=== PATIENT | male | born 1960 | race Caucasian/White ===

== ENCOUNTER → 2016-07-08 | Outpatient (CLI) | payer MEDICARE, OTHER ==
[~2016-07-08] MED LIST: ALBU1AER INH; AMIO200 PO; AMLO5TAB22 PO; ATOR80TA PO; COQ150CA PO; COUM3TAB PO; GABA100C4 PO; LEVO50TA4 PO; LORA-392 PO; MORP30SU PO; MORP60TA20 PO; MSIR15 PO; OMEG1CAP53 PO; OMEP20TA39 PO; SENN1TAB11 PO; SPIRCAP INH; SYMB80AE INH; TAB-TAB PO; WARF6 PO; ZYPR5TAB PO
[2016-07-08 13:15] LABS: AUTOMATED NEUTROPHIL # 5.9 TH/MM3 (1.8-7.7); BASOPHIL # 0.1 TH/MM3 (0-0.2); BASOPHIL % 0.7 % (0.0-2.0); EOSINOPHIL # 0.3 TH/MM3 (0-0.4); EOSINOPHIL % 2.9 % (0.0-4.0); HEMATOCRIT 41.9 % (39.0-51.0); HEMO FLAGS DIFF FINAL; LYMPH % 26.1 % (9.0-44.0); LYMPHOCYTE # 2.7 TH/MM3 (1.0-4.8); MEAN CELL VOLUME 95.3 FL (80.0-100.0); MEAN CORPUSCULAR HEMOGLOBIN 32.5 PG (27.0-34.0); MEAN CORPUSCULAR HGB CONC 34.1 % (32.0-36.0); MONO % 13.1 % (0.0-8.0); NEUT % 57.2 % (16.0-70.0); PLATELET COUNT 220 TH/MM3 (150-450); RED BLOOD COUNT 4.39 MIL/MM3 (4.50-5.90); RED CELL DISTRIBUTION WIDTH 13.4 % (11.6-17.2); WHITE BLOOD COUNT 10.2 TH/MM3 (4.0-11.0)
[2016-07-08 13:41] LABS: BICARBONATE 27.2 MEQ/L (21.0-32.0); POTASSIUM 4.1 MEQ/L (3.5-5.1)
[2016-07-08 14:25] LABS: BACTERIA, URINE RARE /hpf; BLOOD, URINE MOD (NEG); GLUCOSE,URINE NEG (NEG); HYALINE CAST, URINE 5 /lpf (RARE); KETONE, URINE NEG (NEG); MUCUS URINE FEW /lpf (OCC); NITRITE,URINE NEG (NEG); PH, URINE 5.5 (5.0-8.5); URINE COLOR YELLOW (YELLW/STRAW)
== END ==
LOC: PLAB 09:31
PROVIDERS: ATTEND Internal Medicine Nephrology
DX: N18.3 Chronic kidney disease, stage 3 (moderate) (principal)
CPT/HCPCS: 36415; 80069; 81001; 85025

== ENCOUNTER → 2016-08-17 | Outpatient (CLI) | payer MEDICARE ==
[2016-08-17 09:15] LABS: AUTOMATED NEUTROPHIL # 4.1 TH/MM3 (1.8-7.7); BASOPHIL # 0.1 TH/MM3 (0-0.2); BASOPHIL % 0.6 % (0.0-2.0); EOSINOPHIL # 0.2 TH/MM3 (0-0.4); EOSINOPHIL % 2.5 % (0.0-4.0); HEMATOCRIT 42.1 % (39.0-51.0); HEMO FLAGS DIFF FINAL; LYMPH % 36.5 % (9.0-44.0); LYMPHOCYTE # 3.1 TH/MM3 (1.0-4.8); MEAN CORPUSCULAR HEMOGLOBIN 32.9 PG (27.0-34.0); MEAN CORPUSCULAR HGB CONC 34.6 % (32.0-36.0); MONO % 12.3 % (0.0-8.0); NEUT % 48.1 % (16.0-70.0); PLATELET COUNT 219 TH/MM3 (150-450); RED BLOOD COUNT 4.43 MIL/MM3 (4.50-5.90); RED CELL DISTRIBUTION WIDTH 13.2 % (11.6-17.2); WHITE BLOOD COUNT 8.6 TH/MM3 (4.0-11.0)
[2016-08-17 09:59] LABS: ALKALINE PHOSPHATASE 92 U/L (45-117); ALT (GPT) 31 U/L (12-78); ANION GAP 8 MEQ/L (5-15); AST (GOT) 20 U/L (15-37); BICARBONATE 26.9 MEQ/L (21.0-32.0); BLOOD UREA NITROGEN 21 MG/DL (7-18); CHLORIDE 104 MEQ/L (98-107); FERRITIN 279 NG/ML (26-388); GLOMERULAR FILTRATION RATE 43 ML/MIN (>89); GLUCOSE,FASTING 100 MG/DL (74-99); HDL CHOLESTEROL 64.7 MG/DL (40.0-60.0); LDL CHOLESTEROL 43 MG/DL (0-99); POTASSIUM 4.4 MEQ/L (3.5-5.1); SODIUM (NA) 139 MEQ/L (136-145); TOTAL BILIRUBIN ADULT 0.4 MG/DL (0.2-1.0)
== END ==
LOC: PLAB 06:46
PROVIDERS: ATTEND Internal Medicine Critical Care Medicine
DX: E03.9 Hypothyroidism, unspecified (principal); E78.00 Pure hypercholesterolemia, unspecified; I12.9 Hypertensive chronic kidney disease with stage 1 through stage 4 chronic kidney disease, or unspecified chronic kidney disease; N18.9 Chronic kidney disease, unspecified; D63.1 Anemia in chronic kidney disease; Z12.5 Encounter for screening for malignant neoplasm of prostate
CPT/HCPCS: 36415; 80053; 80061; 82607; 82728; 84443; 85025; G0103

== ENCOUNTER → 2016-10-12 | Outpatient (CLI) | payer MEDICARE ==
[2016-10-12 15:57] LABS: AUTOMATED NEUTROPHIL # 7.4 TH/MM3 (1.8-7.7); BASOPHIL % 0.4 % (0.0-2.0); EOSINOPHIL # 0.1 TH/MM3 (0-0.4); EOSINOPHIL % 0.8 % (0.0-4.0); HEMATOCRIT 42.6 % (39.0-51.0); HEMO FLAGS DIFF FINAL; LYMPH % 20.2 % (9.0-44.0); LYMPHOCYTE # 2.2 TH/MM3 (1.0-4.8); MEAN CELL VOLUME 96.6 FL (80.0-100.0); MEAN CORPUSCULAR HEMOGLOBIN 32.4 PG (27.0-34.0); MEAN CORPUSCULAR HGB CONC 33.5 % (32.0-36.0); MONO % 11.2 % (0.0-8.0); NEUT % 67.4 % (16.0-70.0); PLATELET COUNT 217 TH/MM3 (150-450); RED BLOOD COUNT 4.41 MIL/MM3 (4.50-5.90); RED CELL DISTRIBUTION WIDTH 13.8 % (11.6-17.2); WHITE BLOOD COUNT 10.9 TH/MM3 (4.0-11.0)
[2016-10-12 16:09] LABS: BLOOD, URINE LARGE (NEG); GLUCOSE,URINE NEG (NEG); KETONE, URINE NEG (NEG); NITRITE,URINE NEG (NEG); PH, URINE 5.5 (5.0-8.5); URINE COLOR YELLOW (YELLW/STRAW)
[2016-10-12 16:13] LABS: BICARBONATE 28.1 MEQ/L (21.0-32.0); POTASSIUM 4.4 MEQ/L (3.5-5.1)
[2016-10-12 16:14] LABS: SQUAMOUS EPITHELIAL CELL URINE 0-5 /hpf (0-5)
== END ==
LOC: PLAB 13:24
PROVIDERS: ATTEND Internal Medicine Nephrology
DX: N18.3 Chronic kidney disease, stage 3 (moderate) (principal)
CPT/HCPCS: 36415; 80069; 81001; 85025

== ENCOUNTER → 2017-01-13 | Outpatient (CLI) | payer MEDICARE ==
[2017-01-13 12:53] LABS: BLOOD, URINE MOD (NEG); GLUCOSE,URINE NEG (NEG); KETONE, URINE NEG (NEG); NITRITE,URINE NEG (NEG); PH, URINE 5.5 (5.0-8.5); URINE COLOR YELLOW (YELLW/STRAW)
[2017-01-13 12:57] LABS: AUTOMATED NEUTROPHIL # 5.4 TH/MM3 (1.8-7.7); BASOPHIL # 0.1 TH/MM3 (0-0.2); BASOPHIL % 0.6 % (0.0-2.0); EOSINOPHIL # 0.1 TH/MM3 (0-0.4); EOSINOPHIL % 1.2 % (0.0-4.0); HEMATOCRIT 42.3 % (39.0-51.0); HEMO FLAGS DIFF FINAL; LYMPH % 22.3 % (9.0-44.0); MEAN CELL VOLUME 97.7 FL (80.0-100.0); MEAN CORPUSCULAR HEMOGLOBIN 32.5 PG (27.0-34.0); MEAN CORPUSCULAR HGB CONC 33.3 % (32.0-36.0); MONO % 16.1 % (0.0-8.0); NEUT % 59.8 % (16.0-70.0); PLATELET COUNT 224 TH/MM3 (150-450); RED BLOOD COUNT 4.33 MIL/MM3 (4.50-5.90); RED CELL DISTRIBUTION WIDTH 12.9 % (11.6-17.2); WHITE BLOOD COUNT 9.1 TH/MM3 (4.0-11.0)
[2017-01-13 13:20] LABS: BICARBONATE 23.2 MEQ/L (21.0-32.0)
== END ==
LOC: PLAB 09:38
PROVIDERS: ATTEND Internal Medicine Nephrology
DX: N18.3 Chronic kidney disease, stage 3 (moderate) (principal)
CPT/HCPCS: 36415; 80069; 81001; 85025

== ENCOUNTER 2017-02-13 12:07 | Emergency (ER) | payer MEDICARE ==
[2017-02-13 12:12] VITALS: BP 134/91; PULSE 99; RESP 20; TEMP 97.9; O2SAT 96
--- NOTE | 2017-02-13 12:40 | PD ---
HPI Chief Complaint: Musculoskeletal Complaint Time Seen by Provider: 12:28 Travel History International Travel<30 days: No Contact w/Intl Traveler<30days: No Traveled to known affect area: No History of Present Illness HPI Patient is a 56-year-old male who presents to emergency room with complaints of right hand swelling. Patient reports that 4 days ago, he accidentally slammed his hand against a wall. Patient reports that he noticed increased swelling the next day. Reports that he was concerned as he is on Coumadin as he had had a valve replacement in the past. Patient denies any fevers or chills, denies any pain, reports concern for the swelling in the right hand. He did notice that when he iced his hand, the swelling did improve. Patient unsure what his INR is at this time. PFSH Past Medical History Arthritis: No Asthma: No Autoimmune Disease: No Blood Disorders: No Anxiety: No Depression: No Heart Rhythm Problems: Yes Cancer: No Cardiac Catheterization: Yes (NO STENTS) Cardiovascular Problems: Yes (AVR, CHF, AICD) High Cholesterol: Yes Chemotherapy: No Chest Pain: Yes (Bones hurt from sternal surgery. ) Congestive Heart Failure: No COPD: Yes Cerebrovascular Accident: No Diabetes: Yes (TRANSIENTLY NEEDING SUPPLEMENTS) Patient Takes Glucophage: No Dialysis: Yes (OFF DIALYSIS SINCE Jun) Diminished Hearing: No Endocrine: Yes Gastrointestinal Disorders: Yes (GERD/ ) GERD: Yes Glaucoma: No Genitourinary: No Headaches: Yes Hepatitis: No Hiatal Hernia: No Hypertension: Yes Immune Disorder: No Inguinal Hernia: Yes Implanted Vascular Access Dvce: Yes Kidney Stones: No Musculoskeletal: Yes (AVASC. NECROSIS LEFT HIP, NECK/BACK PAIN) Neurologic: No Psychiatric: No Reproductive: No Respiratory: Yes (SLEEP APNEA, COPD) Immunizations Current: No Migraines: No Myocardial Infarction: Yes Radiation Therapy: No Renal Failure: Yes (ACUTE RENAL FAILURE 2012) Seizures: No Sickle Cell Disease: No Sleep Apnea: Yes (CPAP) Thyroid Disease: No Ulcer: No Past Surgical History Abdominal Surgery: Yes (RIGHT ING. HERNIA) AICD: Yes (MEDTR[employer]IC DUAL CHAMBER) Arteriovenous Shunt: No Body Medical Devices: METAL AORTIC VALVE, CHEST PLATES Cardiac Surgery: Yes (AICD, AVR, STERNAL RECONSTRUCTION) Coronary Artery Bypass Graft: Yes (STATES HE HAS METAL PLATES IN CHEST) Ear Surgery: No Endocrine Surgery: No Eye Surgery: No Genitourinary Surgery: No Gynecologic Surgery: No Insulin Pump: No Joint Replacement: No Oral Surgery: No Pacemaker: No Thoracic Surgery: No Tonsillectomy: Yes Valve Replacement: Yes (11/29/2007 AORTIC VALVE REPLACEMENT ) Other Surgery: Yes (AORTIC VALVE REPLACEMENT, AICD, Plates to chest due to non closer. ) Social History Alcohol Use: No (1-2 BEERS EVERY FEW DAYS) Tobacco Use: No (QUIT 3 YRS AGO SMOKED 2 PPD FOR 30+ YRS) Substance Use: No (RECOVERING ALCOHOLIC) Allergies-Medications (Allergen,Severity, Reaction): Coded Allergies: gemfibrozil (Unverified Allergy, Severe, VERTIGO, SYNCOPE, 01/04/17) gabapentin (Verified Allergy, Unknown, 02/13/17) metoprolol (Unverified Adverse Reaction, Severe, dizzy and recurrent syncope with 3 diffierent tries. , 01/04/17) Uncoded Allergies: MRI PRECAUTION-PACEMAKER NON REVO (Adverse Reaction, Severe, MRI PRECAUTION PACEMAKER, 07/04/13) Reported Meds & Prescriptions Reported Meds & Active Scripts Active Morphine Sulfate Cr (Morphine Sulfate) 60 Mg Tab 60 Mg PO IN AM Dr Card[facility]. [facility] Amlodipine Besylate 5 mg (Amlodipine Besylate) 5 Mg Tab 5 Mg PO BID Lovaza (Fish Oil) 1 Gm Cap 1 Gm PO DAILY Zyprexa (Olanzapine) 5 Mg Tab 5 Mg PO HS Levothyroxine 50 mcg (Levothyroxine Sodium) 50 Mcg Tab 1 Tab PO DAILY Ativan (Lorazepam) 0.5 Mg Tab 0.5 Mg PO TID Coumadin 3 mg (Warfarin Sodium) 3 Mg Tab 3 Mg PO DAILY 1 tab , and 2 tabs all other days Proair Hfa (Albuterol Sulfate) 8.5 Gm Aero 2 Puff INH Q4 PRN * SHAKE WELL BEFORE USE * Spiriva Handihaler (Tiotropium [place]) 18 Mcg Cap 1 Dose INH DAILY DO NOT SWALLOW CAPSULES Atorvastatin 80 mg (Atorvastatin Calcium) 80 Mg Tab 80 Mg PO HS Cordarone 200 Mg Tab (Amiodarone HCl) 200 Mg Tab 200 Mg PO DAILY Symbicort (Budesonide/Formoterol Fumarate) 80 Mcg/4.5 Mcg Aer 2 Puff INH BID 30 Days * SHAKE WELL BEFORE USE * Coq10 (Coenzyme Q10) 50 Mg Cap 100 Mg PO DAILY Reported Multivitamin (Multivitamins) 1 Tab Tab 1 Tab PO DAILY Coumadin (Warfarin Sodium) 6 Mg Tab 6 Mg PO , Gabapentin 100 Mg Cap 100 Mg PO DAILY Review of Systems General / Constitutional: No: Fever Eyes: No: Visual changes HENT: No: Headaches Cardiovascular: No: Chest Pain or Discomfort Respiratory: No: Shortness of Breath Gastrointestinal: No: Abdominal Pain Genitourinary: No: Dysuria Musculoskeletal: Positive: Edema (right hand swelling), No: Pain Skin: No Rash Neurologic: No: Weakness Psychiatric: No: Depression Endocrine: No: Polydipsia Hematologic/Lymphatic: No: Easy Bruising Physical Exam Narrative GENERAL: Well-nourished, well-developed patient. SKIN: Focused skin assessment warm/dry. HEAD: Normocephalic. EYES: No scleral icterus. No injection or drainage. NECK: Supple, trachea midline. No JVD or lymphadenopathy. CARDIOVASCULAR: Regular rate and rhythm without murmurs, gallops, or rubs. RESPIRATORY: Breath sounds equal bilaterally. No accessory muscle use. GASTROINTESTINAL: Abdomen soft, non-tender, nondistended. MUSCULOSKELETAL: No cyanosis LUE: normal exam RUE: patient with good and bounding pulses, neurovascularly intact, patient with slight swelling to dorsum of hand, no open lesions, no redness or cellulitis BACK: Nontender without obvious deformity. No CVA tenderness. Data Data Last Documented VS Vital Signs Date Time Temp Pulse Resp B/P (MAP) Pulse Ox O2 Delivery O2 Flow Rate FiO2 02/13/17 12:12 97.9 99 20 134/91 (105) 96 Orders Orders Hand, Complete ([id number]) (02/13/17 ) Complete Blood Count With Diff (02/13/17 12:27) Prothrombin Time / Inr (Pt) (02/13/17 12:27) Ice / Cold Pack PRN (02/13/17 12:27) Labs Laboratory Tests Test 02/13/17 13:00 White Blood Count 12.4 TH/MM3 Red Blood Count 4.58 MIL/MM3 Hemoglobin 14.6 GM/DL Hematocrit 43.9 % Mean Corpuscular Volume 95.7 FL Mean Corpuscular Hemoglobin 31.9 PG Mean Corpuscular Hemoglobin Concent 33.3 % Red Cell Distribution Width 13.0 % Platelet Count 247 TH/MM3 Mean Platelet Volume 8.0 FL Neutrophils (%) (Auto) 68.5 % Lymphocytes (%) (Auto) 17.8 % Monocytes (%) (Auto) 11.4 % Eosinophils (%) (Auto) 0.6 % Basophils (%) (Auto) 1.7 % Neutrophils # (Auto) 8.5 TH/MM3 Lymphocytes # (Auto) 2.2 TH/MM3 Monocytes # (Auto) 1.4 TH/MM3 Eosinophils # (Auto) 0.1 TH/MM3 Basophils # (Auto) 0.2 TH/MM3 CBC Comment DIFF FINAL Differential Comment Prothrombin Time 20.5 SEC Prothromb Time International Ratio 1.8 RATIO MDM Medical Decision Making Medical Screen Exam Complete: Yes Emergency Medical Condition: Yes Medical Record Reviewed: Yes Interpretation(s) Vital Signs Date Time Temp Pulse Resp B/P (MAP) Pulse Ox O2 Delivery O2 Flow Rate FiO2 02/13/17 12:12 97.9 99 20 134/91 (105) 96 Differential Diagnosis Coumadin coagulopathy, hand fracture, hand swelling Narrative Course 56-year-old male who presents to emergency room for evaluation of right hand swelling after he hit the dorsum of his hand on the wall on Tuesday. Patient is nontoxic and evaluation, patient is controlled this time. Plan to obtain CBC as well as INR. Will obtain x-ray of the hand. Last Impressions Hand X-Ray 02/13/17 0000 Signed Impressions: Service Date/Time: Monday, February 13, 2017 12:37 - CONCLUSION: 1. Old fracture deformity of the fifth metacarpal. 2. No acute osseous injury. Blaise Dove MD CBC & BMP Diagram 02/13/17 13:00 INR: There are no obvious deformity, hgb 14.6, platelets 247 All labs and studies reviewed with patient, he will follow up with his pcp and will return to ER as needed Diagnosis Primary Impression: Localized swelling on right hand Patient Instructions: General Instructions Additional Instructions: Please follow up with your primary care doctor Return to ER as needed Return to ER if symptoms worsen or progress Please apply ice packs to your right hand Disposition: 01 DISCHARGE HOME Condition: Stable Mariana Lara DO Feb 13, 2017 12:39
--- NOTE | 2017-02-13 12:51 | RADRPT ---
EXAM DATE/TIME: 02/13/2017 12:37 [facility] COMPARISON: No previous studies available for comparison. INDICATIONS : Hit back of hand on wall, has pain , swelling, difficulty moving fingers MEDICAL HISTORY : Renal failure, chronic. Chronic obstructive pulmonary disease. SURGICAL HISTORY : Pacemaker. Valve replacement ENCOUNTER: Initial ACUITY: 4 - 6 days PAIN SCORE: 5/10 LOCATION: Right hand FINDINGS: Three view examination of the right hand demonstrates what appears to be an old healed fracture defor mity of the fifth metacarpal diaphysis. Osseous structures are otherwise intact. CONCLUSION: 1. Old fracture deformity of the fifth metacarpal. 2. No acute osseous injury. Blaise Dove MD on February 13, 2017 at 12:48 Board Certified Radiologist. This report was verified electronically.
[2017-02-13 13:22] LABS: AUTOMATED NEUTROPHIL # 8.5 TH/MM3 (1.8-7.7); BASOPHIL # 0.2 TH/MM3 (0-0.2); BASOPHIL % 1.7 % (0.0-2.0); EOSINOPHIL # 0.1 TH/MM3 (0-0.4); EOSINOPHIL % 0.6 % (0.0-4.0); HEMATOCRIT 43.9 % (39.0-51.0); HEMO FLAGS DIFF FINAL; LYMPH % 17.8 % (9.0-44.0); LYMPHOCYTE # 2.2 TH/MM3 (1.0-4.8); MEAN CELL VOLUME 95.7 FL (80.0-100.0); MEAN CORPUSCULAR HEMOGLOBIN 31.9 PG (27.0-34.0); MEAN CORPUSCULAR HGB CONC 33.3 % (32.0-36.0); MONO % 11.4 % (0.0-8.0); NEUT % 68.5 % (16.0-70.0); PLATELET COUNT 247 TH/MM3 (150-450); RED BLOOD COUNT 4.58 MIL/MM3 (4.50-5.90); WHITE BLOOD COUNT 12.4 TH/MM3 (4.0-11.0)
[2017-02-13 13:39] LABS: INTERNATIONAL NORMALIZED RATIO 1.8 RATIO; PROTHROMBIN TIME - PATIENT 20.5 SEC (9.8-11.6)
== END 2017-02-13 14:39 | disposition home or self-care (01) ==
LOC: PHED 12:07
DX: M79.89 Other specified soft tissue disorders (principal); E11.9 Type 2 diabetes mellitus without complications; E78.00 Pure hypercholesterolemia, unspecified; I11.0 Hypertensive heart disease with heart failure; I25.2 Old myocardial infarction; I50.9 Heart failure, unspecified; J44.9 Chronic obstructive pulmonary disease, unspecified; Z79.01 Long term (current) use of anticoagulants; Z95.0 Presence of cardiac pacemaker; Z95.1 Presence of aortocoronary bypass graft; Z95.2 Presence of prosthetic heart valve; Z95.810 Presence of automatic (implantable) cardiac defibrillator; N17.9 Acute kidney failure, unspecified
CPT/HCPCS: 73130; 85025; 85610; 99284

== ENCOUNTER → 2017-03-23 | Outpatient (CLI) | payer MEDICARE ==
[~2017-03-23] MED LIST changes: -MORP30SU PO; -MSIR15 PO; -OMEP20TA39 PO; -SENN1TAB11 PO
[2017-03-23 09:42] LABS: AUTOMATED NEUTROPHIL # 4.6 TH/MM3 (1.8-7.7); BASOPHIL # 0.1 TH/MM3 (0-0.2); BASOPHIL % 0.8 % (0.0-2.0); EOSINOPHIL # 0.2 TH/MM3 (0-0.4); EOSINOPHIL % 2.1 % (0.0-4.0); HEMATOCRIT 43.3 % (39.0-51.0); HEMOGLOBIN 14.9 GM/DL (13.0-17.0); LYMPH % 34.2 % (9.0-44.0); LYMPHOCYTE # 3.1 TH/MM3 (1.0-4.8); MEAN CELL VOLUME 98.7 FL (80.0-100.0); MEAN CORPUSCULAR HEMOGLOBIN 34.1 PG (27.0-34.0); MEAN CORPUSCULAR HGB CONC 34.5 % (32.0-36.0); MEAN PLATELET VOLUME 8.5 FL (7.0-11.0); MONO % 11.4 % (0.0-8.0); NEUT % 51.5 % (16.0-70.0); PLATELET COUNT 200 TH/MM3 (150-450); RED BLOOD COUNT 4.38 MIL/MM3 (4.50-5.90); RED CELL DISTRIBUTION WIDTH 13.8 % (11.6-17.2)
[2017-03-23 09:53] LABS: ALBUMIN 3.5 GM/DL (3.4-5.0); AST (GOT) 47 U/L (15-37); BICARBONATE 25.1 MEQ/L (21.0-32.0); BLOOD UREA NITROGEN 17 MG/DL (7-18); CALCIUM 8.8 MG/DL (8.5-10.1); CHLORIDE 105 MEQ/L (98-107); CREATININE 1.45 MG/DL (0.60-1.30); GLOMERULAR FILTRATION RATE 51 ML/MIN (>89); GLUCOSE,FASTING 101 MG/DL (74-99); SODIUM (NA) 138 MEQ/L (136-145)
[2017-03-23 09:54] LABS: ALT (GPT) 54 U/L (12-78); CHOLESTEROL 176 MG/DL (120-200); TRIGLYCERIDES 311 MG/DL (42-150)
[2017-03-23 10:04] LABS: ALKALINE PHOSPHATASE 108 U/L (45-117); CHOLESTEROL/ HDL RATIO 2.37 RATIO; HDL CHOLESTEROL 74.2 MG/DL (40.0-60.0); LDL CHOLESTEROL 40 MG/DL (0-99); TOTAL BILIRUBIN ADULT 0.5 MG/DL (0.2-1.0); TOTAL PROTEIN 7.5 GM/DL (6.4-8.2)
[2017-03-23 16:25] LABS: HEMOGLOBIN A1C 5.7 % (4.3-6.0)
== END ==
LOC: PLAB 07:14
PROVIDERS: ATTEND Internal Medicine Cardiovascular Disease
DX: I48.91 Unspecified atrial fibrillation (principal); I50.9 Heart failure, unspecified; Z79.899 Other long term (current) drug therapy
CPT/HCPCS: 36415; 80053; 80061; 83036; 84443; 85025

== ENCOUNTER → 2017-04-12 | Outpatient (CLI) | payer MEDICARE ==
[2017-04-12 12:41] LABS: AUTOMATED NEUTROPHIL # 6.6 TH/MM3 (1.8-7.7); BASOPHIL # 0.1 TH/MM3 (0-0.2); BASOPHIL % 0.6 % (0.0-2.0); EOSINOPHIL # 0.1 TH/MM3 (0-0.4); EOSINOPHIL % 0.8 % (0.0-4.0); HEMO FLAGS DIFF FINAL; LYMPH % 22.1 % (9.0-44.0); LYMPHOCYTE # 2.2 TH/MM3 (1.0-4.8); MEAN CELL VOLUME 100.2 FL (80.0-100.0); MEAN CORPUSCULAR HEMOGLOBIN 34.8 PG (27.0-34.0); MEAN CORPUSCULAR HGB CONC 34.7 % (32.0-36.0); MONO % 10.9 % (0.0-8.0); NEUT % 65.6 % (16.0-70.0); PLATELET COUNT 214 TH/MM3 (150-450); RED BLOOD COUNT 4.29 MIL/MM3 (4.50-5.90); RED CELL DISTRIBUTION WIDTH 14.1 % (11.6-17.2); WHITE BLOOD COUNT 10.1 TH/MM3 (4.0-11.0)
[2017-04-12 12:55] LABS: BLOOD, URINE MOD (NEG); GLUCOSE,URINE NEG (NEG); HYALINE CAST, URINE 1 /lpf (RARE); KETONE, URINE NEG (NEG); MUCUS URINE FEW /lpf (OCC); NITRITE,URINE NEG (NEG); PH, URINE 5.5 (5.0-8.5); SQUAMOUS EPITHELIAL CELL URINE <1 /hpf (0-5); URINE COLOR YELLOW (YELLW/STRAW)
[2017-04-12 13:14] LABS: BICARBONATE 25.8 MEQ/L (21.0-32.0); POTASSIUM 4.1 MEQ/L (3.5-5.1)
== END ==
LOC: PLAB 09:05
PROVIDERS: ATTEND Internal Medicine Nephrology
DX: N18.3 Chronic kidney disease, stage 3 (moderate) (principal)
CPT/HCPCS: 36415; 80069; 81001; 85025

== ENCOUNTER → 2017-07-26 | Outpatient (CLI) | payer MEDICARE ==
[2017-07-26 11:37] LABS: AUTOMATED NEUTROPHIL # 4.4 TH/MM3 (1.8-7.7); BASOPHIL # 0.1 TH/MM3 (0-0.2); BASOPHIL % 0.7 % (0.0-2.0); EOSINOPHIL # 0.1 TH/MM3 (0-0.4); EOSINOPHIL % 1.7 % (0.0-4.0); HEMATOCRIT 40.4 % (39.0-51.0); LYMPH % 27.1 % (9.0-44.0); LYMPHOCYTE # 2.1 TH/MM3 (1.0-4.8); MEAN CELL VOLUME 101.6 FL (80.0-100.0); MEAN CORPUSCULAR HEMOGLOBIN 35.2 PG (27.0-34.0); MEAN CORPUSCULAR HGB CONC 34.6 % (32.0-36.0); MEAN PLATELET VOLUME 8.4 FL (7.0-11.0); MONOCYTE # 0.9 TH/MM3 (0-0.9); NEUT % 58.5 % (16.0-70.0); PLATELET COUNT 187 TH/MM3 (150-450); RED BLOOD COUNT 3.98 MIL/MM3 (4.50-5.90); RED CELL DISTRIBUTION WIDTH 13.3 % (11.6-17.2); WHITE BLOOD COUNT 7.6 TH/MM3 (4.0-11.0)
[2017-07-26 11:38] LABS: BILIRUBIN, URINE NEG (NEG); BLOOD, URINE SMALL (NEG); GLUCOSE,URINE NEG (NEG); HYALINE CAST, URINE 1 /lpf (RARE); KETONE, URINE NEG (NEG); MUCUS URINE FEW /lpf (OCC); NITRITE,URINE NEG (NEG); PH, URINE 5.5 (5.0-8.5); URINE COLOR YELLOW (YELLW/STRAW); URINE LEUKOCYTE ESTERASE NEG (NEG)
[2017-07-26 11:47] LABS: ALBUMIN 3.3 GM/DL (3.4-5.0); BICARBONATE 26.1 MEQ/L (21.0-32.0); CALCIUM 8.7 MG/DL (8.5-10.1); CREATININE 1.43 MG/DL (0.60-1.30); PHOSPHORUS 1.7 MG/DL (2.5-4.9)
== END ==
LOC: PLAB 09:27
PROVIDERS: ATTEND Internal Medicine Nephrology
DX: N18.3 Chronic kidney disease, stage 3 (moderate) (principal)
CPT/HCPCS: 36415; 80069; 81001; 85025

== ENCOUNTER → 2017-11-04 | Outpatient (CLI) | payer MEDICARE ==
[2017-11-04 13:50] LABS: AUTOMATED NEUTROPHIL # 5.2 TH/MM3 (1.8-7.7); BASOPHIL # 0.1 TH/MM3 (0-0.2); BASOPHIL % 0.7 % (0.0-2.0); EOSINOPHIL # 0.1 TH/MM3 (0-0.4); EOSINOPHIL % 0.7 % (0.0-4.0); HEMATOCRIT 43.1 % (39.0-51.0); HEMOGLOBIN 14.7 GM/DL (13.0-17.0); LYMPH % 22.9 % (9.0-44.0); LYMPHOCYTE # 1.9 TH/MM3 (1.0-4.8); MEAN CORPUSCULAR HEMOGLOBIN 35.2 PG (27.0-34.0); MEAN CORPUSCULAR HGB CONC 34.2 % (32.0-36.0); MONO % 12.9 % (0.0-8.0); MONOCYTE # 1.1 TH/MM3 (0-0.9); NEUT % 62.8 % (16.0-70.0); PLATELET COUNT 219 TH/MM3 (150-450); RED BLOOD COUNT 4.19 MIL/MM3 (4.50-5.90); RED CELL DISTRIBUTION WIDTH 13.7 % (11.6-17.2); WHITE BLOOD COUNT 8.3 TH/MM3 (4.0-11.0)
[2017-11-04 14:06] LABS: BILIRUBIN, URINE NEG (NEG); BLOOD, URINE SMALL (NEG); GLUCOSE,URINE NEG (NEG); KETONE, URINE NEG (NEG); MUCUS URINE FEW /lpf (OCC); NITRITE,URINE NEG (NEG); URINE COLOR Straw (YELLW/STRAW); URINE LEUKOCYTE ESTERASE NEG (NEG)
[2017-11-04 21:05] LABS: ALBUMIN 3.6 GM/DL (3.4-5.0); CALCIUM 9.1 MG/DL (8.5-10.1); CREATININE 1.4 MG/DL (0.60-1.30)
[2017-11-04 21:06] LABS: BICARBONATE 19.2 MEQ/L (21.0-32.0); PHOSPHORUS 2.2 MG/DL (2.5-4.9)
== END ==
LOC: PLAB 11:38
PROVIDERS: ATTEND Internal Medicine Nephrology
DX: N18.3 Chronic kidney disease, stage 3 (moderate) (principal)
CPT/HCPCS: 36415; 80069; 81001; 85025

== ENCOUNTER 2017-12-23 20:25 | Observation (INO) ==
--- NOTE | 2017-12-23 20:55 | ED ---
HPI General Chief Complaint: Syncope Stated Complaint: Seizure Time Seen by Provider: 12/23/17 20:45 Source: patient Limitations: no limitations History of Present Illness HPI narrative: Patient is a 57-year-old male, past medical history significant for failure with an AICD, CKD, COPD and chronic right ankle pain who presents after what he believes to be a syncopal episode. He states he was feeling well , sitting down reaching for a glass of juice. The next thing he remembers is his slapping him to wake him up. He denies chest pain or shortness of breath. His believes that his defibrillator fired. Patient states that he is back to feeling like himself. He has not missed any medications nor meals today. No recent head injuries. Pain to his tongue nor incontinence. MD complaint: loss of consciousness Prodromal symptoms: none Witnessed: yes - by bystander Context: at rest Injuries sustained associated with event: none Current symptoms: back to baseline History: history of CAD, pacemaker and AICD Treatments prior to arrival: none Related Data Home Medications Medication Instructions Recorded Confirmed atorvastatin 80 mg PO DAILY 12/10/17 12/23/17 coQ10 (ubiquinol) 200 mg PO DAILY 12/10/17 12/23/17 levothyroxine 50 mcg PO DAILY 12/10/17 12/23/17 lisinopril 2.5 mg PO DAILY 12/10/17 12/23/17 lorazepam 1 mg PO TID 12/10/17 12/23/17 montelukast [Singulair] 10 mg PO QPM 12/10/17 12/23/17 morphine 30 mg PO BID 12/10/17 12/23/17 multivitamin 1 tab PO DAILY 12/10/17 12/23/17 omega-3 fatty acids-fish oil [Fish 1 cap PO DAILY 12/10/17 12/23/17 Oil] oxycodone-acetaminophen [Percocet] 1 tab PO BID PRN 12/10/17 12/23/17 sennosides-docusate sodium [Senna 1 tab PO TID PRN 12/10/17 12/23/17 Plus] warfarin [Coumadin] 3 mg PO DAILY 12/10/17 12/23/17 warfarin [Coumadin] 6 mg PO 2XWEEK 12/22/17 12/23/17 amlodipine 5 mg PO BID 12/23/17 12/23/17 olanzapine 5 mg PO DAILY 12/23/17 12/23/17 Previous Rx's Medication Instructions Recorded clindamycin HCl 300 mg PO TID 7 Days #21 cap 12/22/17 Allergies Allergy/AdvReac Type Severity Reaction Status Date / Time gemfibrozil Allergy Severe VERTIGO, Verified 12/23/17 20:42 SYNCOPE gabapentin Allergy Unknown Agitation Verified 12/23/17 20:42 metoprolol AdvReac Severe dizzy and Verified 12/23/17 20:42 recurrent syncope with 3 diffierent tries. MRI PRECAUTION-PACEMAKER NON AdvReac Severe MRI Uncoded 12/23/17 20:42 REVO PRECAUTION PACEMAKER Review of Systems Except as stated in HPI: all other systems reviewed are negative Constitutional Denies fever(s) Eyes Denies blurry vision ENT Denies sore throat Cardiovascular Denies chest pain and Denies leg edema Respiratory Denies dyspnea Gastrointestinal Denies abdominal pain Genitourinary Denies flank pain Musculoskeletal Denies back pain Integumentary/Breasts Denies rash Neurologic Denies confusion Psychiatric Denies suicidal ideation Endocrine Denies fatigue [facility] Medical History Medical History COPD (chronic obstructive pulmonary disease) (Acute) Chronic kidney disease (Acute) Chronic pain (Acute) Heart failure (Acute) On home oxygen therapy (Acute) Surgical History Surgical History AICD (automatic cardioverter/defibrillator) present (Acute) Aortic valve replaced (Acute) History of hip replacement (Acute) Social History Social History Substance History: No History of Abuse Second Hand Smoke Exposure: No Smoking Status: Former smoker How Often Do You Have a Drink Containing Alcohol: 4 or more times a week Recent Travel in [facility] within the Last 8 Weeks: No Recent Out of Country Travel within the Last 8 Weeks: No Immunization History Tetanus Immunization: Unsure Hx Influenza Vaccine This Season: No Exam Narrative Exam Narrative: GENERAL: Well-appearing male in no acute distress SKIN: Focused skin assessment warm/dry. No rashes. HEAD: Atraumatic. Normocephalic. EYES: Pupils equal and round. No scleral icterus. No injection or drainage. ENT: No nasal bleeding or discharge. Mucous membranes pink and moist. NECK: Trachea midline. No JVD. CARDIOVASCULAR: Regular rate and rhythm. No murmur appreciated. Intact and equal peripheral pulses RESPIRATORY: No accessory muscle use. Clear to auscultation. Breath sounds equal bilaterally. GASTROINTESTINAL: Abdomen soft, non-tender, nondistended. Hepatic and splenic margins not palpable. MUSCULOSKELETAL: No obvious deformities. No clubbing. No cyanosis. No edema. Normal ROM of R ankle. NEUROLOGICAL: Awake and alert. No obvious cranial nerve deficits. Motor within normal limits. Normal sensation. No ataxia. Normal speech. PSYCHIATRIC: Appropriate mood and affect; insight and judgment normal. Course Hospital Course: Patient is a 57-year-old male who presents with complaint of syncope versus seizure at home. He is asymptomatic at this time. He was placed on a demand generation manager and IV was established. Initial Documented Vital Signs Temperature 98.4 F 12/23/17 20:37 Pulse Rate 104 H 12/23/17 20:37 Respiratory Rate 18 12/23/17 20:37 Blood Pressure 162/86 H 12/23/17 20:37 Pulse Oximetry 95 12/23/17 20:37 Last Documented Vital Signs Temperature 98.4 F 12/23/17 20:37 Pulse Rate 116 H 12/23/17 20:40 Respiratory Rate 18 12/23/17 20:40 Blood Pressure 162/86 H 12/23/17 20:40 Pulse Oximetry 98 12/23/17 20:55 Medical Decision Making MDM Narrative Medical decision making narrative: Patient is a 57-year-old male who presents with complaint of syncope versus seizure today while seated. His believes that his pacemaker/defibrillator fired several times. He states that he feels fine except for his right ankle pain. EKG shows a ventricularly replaced rhythm that does not meet sclerosis criteria. Labs show white blood cell count of 14.5 but otherwise unremarkable. His left ankle does not show any swelling nor effusion and has normal range of motion, thus is not thought to be infected. He has been admitted to the hospital duration of his syncope and will remain on the demand generation manager. Differential Diagnosis Differential Diagnosis: Differential diagnosis includes but is not limited to dysrhythmia, metabolic disturbance, electrolyte imbalance, seizure, acute coronary syndrome, septic joint. Medical Records Medical records reviewed: Yes I reviewed the patient's medical records. Review of medical records reveals that the patient was recently started on clindamycin for cellulitis and that he was seen [facility] for his ankle pain today. He had an x-ray that was unremarkable. Lab Data Lab results reviewed: Yes I reviewed the patient's lab results. Lab results narrative: Unremarkable. Result diagrams: 12/23/17 21:00 12/23/17 21:00 Lab Results 12/23/17 12/23/17 12/23/17 Range/Units 21:00 21:00 22:52 WBC 14.5 H (4.0-11.0) th/mm3 RBC 4.17 L (4.50-5.90) mil/mm3 Hgb 14.9 (13.0-17.0) gm/dL Hct 43.1 (39.0-51.0) % MCV 103.6 H (80.0-100.0) fL MCH 35.8 H (27.0-34.0) pg MCHC 34.6 (32.0-36.0) % RDW 13.2 (11.6-17.2) % Plt Count 179 (150-450) th/mm3 MPV 8.3 (7.0-11.0) fL PT 31.5 H (9.8-11.6) sec INR 3.1 Ratio Sodium 136 (136-145) meq/L Potassium 4.2 (3.5-5.1) meq/L Chloride 103 (98-107) meq/L Carbon Dioxide 24.2 (21.0-32.0) meq/L Anion Gap 9 (5-15) meq/L BUN 7 (7-18) mg/dL Creatinine 1.27 (0.60-1.30) mg/dL Estimated GFR 59 L (>89) mL/min Random Glucose 141 H (74-106) mg/dL Calcium 8.8 (8.5-10.1) mg/dL Magnesium 1.8 (1.5-2.5) mg/dL Troponin I 0.04 (0.02-0.05) ng/mL Imaging Data Attestation: I personally reviewed and interpreted this imaging study as follows : My impression: No acute cardiopulmonary process. Radiologist's impression: Chest X-Ray 12/23/17 20:55 CONCLUSION: Pacer leads in right atrium and right ventricle. Sternotomy with prior aortic valve replacement. No acute findings. Head CT 12/23/17 20:55 CONCLUSION: 1. No acute findings. Stable atrophy with mild ventricular enlargement compared with March 2013. . ECG Data EKG Prior to Arrival: Yes Attestation: I personally reviewed and interpreted this ECG as follows: ( Ventricularly paced rhythm at 116 bpm. No concordance nor excessive discordance of the ST segments..) Discharge Plan Discharge Disposition Patient Disposition: 30 Still Patient Discharge Condition Condition: Stable Discharge Details Diagnosis: Syncope Physicians Team ED Provider: Caitlin Gonsales Primary Care Provider: Lorri De Los Santos Attending Provider: Bettina Duenas Status ED Status: Admitted Observation Patient
[2017-12-23 21:11] LABS: Hematocrit 43.1 % (39.0-51.0); Hemoglobin 14.9 gm/dL (13.0-17.0); Mean Corpuscular HGB Conc 34.6 % (32.0-36.0); Mean Corpuscular Hemoglobin 35.8 pg (27.0-34.0); Mean Corpuscular Volume 103.6 fL (80.0-100.0); Mean Platelet Volume 8.3 fL (7.0-11.0); Platelet Count 179 th/mm3 (150-450); Red Blood Count 4.17 mil/mm3 (4.50-5.90); Red Cell Distribution Width 13.2 % (11.6-17.2); White Blood Count 14.5 th/mm3 (4.0-11.0)
--- NOTE | 2017-12-23 21:25 | CT ---
EXAM DATE: 12/23/2017 9:21 PM EDT AGE/SEX: 57 years / Male INDICATIONS: Possible seizure. CLINICAL DATA: This is the patient's initial encounter. Patient reports that signs and symptoms have been present for 1 day and indicates a pain score of 0/10. MEDICAL/SURGICAL HISTORY: Renal disease. Chronic obstructive pulmonary disease. Congestive heart failure. . Aortic valve replacement. RADIATION DOSE: 52.13 CTDI (mGy) COMPARISON: [facility], CT BRAIN W/O CONTRAST, 03/30/2013. . TECHNIQUE: CT of the head without contrast. Using automated exposure control and adjustment of the mA and/or kV according to patient size, radiation dose was kept as low as reasonably achievable to ob tain optimal diagnostic quality images. DICOM format image data is available electronically for revi ew and comparison. FINDINGS: Cerebrum: Cortical atrophy with ventricular enlargement, stable No evidence of midline shift, mass l esion, hemorrhage or acute infarction. No extraaxial fluid collections are seen. Posterior Fossa: The cerebellum and brainstem are intact. The 4th ventricle is midline. The cerebe llopontine angle is unremarkable. Extracranial: The visualized portion of the orbits is intact. Skull: The calvaria is intact. No evidence of skull fracture. CONCLUSION: 1. No acute findings. Stable atrophy with mild ventricular enlargement compared with March 2013. . Electronically signed by: Chidi Rosenberg MD 12/23/2017 9:24 PM EDT
[2017-12-23 21:33] LABS: Troponin I 0.04 ng/mL (0.02-0.05)
[2017-12-23 21:40] LABS: Calcium 8.8 mg/dL (8.5-10.1); Carbon Dioxide 24.2 meq/L (21.0-32.0); Magnesium 1.8 mg/dL (1.5-2.5); Potassium 4.2 meq/L (3.5-5.1)
--- NOTE | 2017-12-23 21:43 | XR ---
EXAM DATE: 12/23/2017 9:36 PM EDT AGE/SEX: 57 years / Male INDICATIONS: . Shortness of breath. CLINICAL DATA: This is the patient's initial encounter. Patient reports that signs and symptoms have been present for 1 day and indicates a pain score of 0/10. MEDICAL/SURGICAL HISTORY: Renal disease. Chronic obstructive pulmonary disease. Congestive he art failure. CABG. Aortic valve replacement. COMPARISON: [facility], CHEST SINGLE AP, 04/01/2013. . FINDINGS: PA and lateral views of the chest demonstrate the lungs to be symmetrically aerated without evidence of mass, infiltrate or effusion. The cardiomediastinal contours are unremarkable. Pacer leads overlie right atrium and right ventricle. Previous sternotomy. Previous aortic valve replacement. CONCLUSION: Pacer leads in right atrium and right ventricle. Sternotomy with prior aortic valve replacement. No a cute findings. Electronically signed by: Chidi Rosenberg MD 12/23/2017 9:41 PM EDT
[2017-12-23 22:09] VITALS: RESP 18
[2017-12-23] MEDS ORDERED: Morphine Inj 4 MG/ML Vial IV.PUSH ONE (22:29)
[2017-12-23] MEDS ORDERED: Temazepam 15 MG Capsule PO PRN (22:50)
[2017-12-23] MEDS ORDERED: Acetaminophen 325 MG Tablet PO PRN (22:50)
[2017-12-23] MEDS ORDERED: Bisacodyl 10 MG Supp RECTAL PRN (22:50)
--- NOTE | 2017-12-23 22:53 | P.HPIM ---
History of Present Illness Primary Care Physician: Lorri De Los Santos MD History of Present Illness: This is a 57-year-old male with a PMH of HTN, CHF (Echo 04/11/13 w/ EF 60%), h/ o AICD ([employer]), AVR on Coumadin, COPD and Chronic Pain who was brought to the ER after syncope. Pt reports he had a "syncope attack" earlier today, h/o similar events "after getting up too fast". Today, states he was sitting down when he had sudden syncope. Denies dizziness/lightheadedness or chest pain prior. No reported AICD shock. States he follows w/ Dr. Randhawa in [facility], last AICD interrogation approx 3 months ago w/ no events. Last INR check was yesterday, states 2.1. Of note, pt has been in [place] ER on 12/22/17 for c/ o RUE redness, d/c'd on Clinda w/ improvement. Seen again on 12/23/17 for c/o right ankle pain, Ankle X-ray negative. Reports ongoing ankle pain despite his home pain medications. No injury/trauma. On arrival, BP 162/86, HR 104, O2 sat 95% on RA, Afebrile. WBC 14.5. Chemistry essentially unremarkable. CXR with no acute findings. CT Head negative for acute findings. - Diagnosis (1) Syncope (2) CHF (congestive heart failure) (3) H/O aortic valve repair (4) Leukocytosis (5) Acute ankle pain Review of Systems PAST FAMILY HISTORY: Reviewed. No h/o DM or CAD All other systems reviewed negative except as stated in HPI [facility] - History History Provided By: Patient - Medical History Medical History: Medical History (Last Reviewed 12/23/17 @ 21:01 by Caitlin Gonsales MD) COPD (chronic obstructive pulmonary disease) Chronic kidney disease Chronic pain Heart failure On home oxygen therapy - Surgical History Surgical History: Surgical History (Last Reviewed 12/23/17 @ 21:01 by Caitlin Gonsales MD) AICD (automatic cardioverter/defibrillator) present Aortic valve replaced History of hip replacement - Tobacco History Second Hand Smoke Exposure: No Smoking Status: Former smoker - Alcohol History How Often Do You Have a Drink Containing Alcohol: 4 or more times a week - Substance Use History Substance History: No History of Abuse - Travel History Recent Travel in the [place] Within the Last 8 Weeks: No Recent Travel Out of the Country Within the Last 8 Weeks: No - Immunization History Tetanus Immunization: Unsure Hx Influenza Vaccine This Season: No Medications and Allergies Active Medications: Active Medications Acetaminophen (Tylenol) 650 mg PO Q4H PRN PRN Reason: Temp > 100.4 Al Hydroxide/Mg Hydroxide (Milk Of Magnesia Liq) 30 ml PO Q12H PRN PRN Reason: Mild Constipation Bisacodyl (Dulcolax Supp) 10 mg RECTAL DAILY PRN PRN Reason: SEVERE CONSITIPATION Lactulose (Lactulose Liq) 30 ml PO DAILY PRN PRN Reason: SEVERE CONSITIPATION Morphine Sulfate (Morphine Inj) 4 mg IV.PUSH Q4H PRN PRN Reason: PAIN 6-10 Senna/Docusate Sodium (Eva-Colace) 1 tab PO BID TYRONE Allergies Allergy/AdvReac Type Severity Reaction Status Date / Time gemfibrozil Allergy Severe VERTIGO, Verified 12/23/17 20:42 SYNCOPE gabapentin Allergy Unknown Agitation Verified 12/23/17 20:42 metoprolol AdvReac Severe dizzy and Verified 12/23/17 20:42 recurrent syncope with 3 diffierent tries. MRI PRECAUTION-PACEMAKER NON AdvReac Severe MRI Uncoded 12/23/17 20:42 REVO PRECAUTION PACEMAKER Home Medications Medication Instructions Recorded Confirmed Type atorvastatin 80 mg PO DAILY 12/10/17 12/22/17 History coQ10 (ubiquinol) 200 mg PO DAILY 12/10/17 12/22/17 History levothyroxine 25 mcg PO DAILY 12/10/17 12/22/17 History lisinopril 2.5 mg PO DAILY 12/10/17 12/22/17 History lorazepam 1 mg PO TID 12/10/17 12/22/17 History montelukast [Singulair] 10 mg PO QPM 12/10/17 12/22/17 History morphine 30 mg PO BID 12/10/17 12/22/17 History multivitamin 1 tab PO DAILY 12/10/17 12/22/17 History omega-3 fatty acids-fish oil [Fish 1 cap PO DAILY 12/10/17 12/22/17 History Oil] oxycodone-acetaminophen [Percocet] 1 tab PO BID PRN 12/10/17 12/22/17 History sennosides-docusate sodium [Senna 1 tab PO TID PRN 12/10/17 12/22/17 History Plus] warfarin [Coumadin] 3 mg PO DAILY 12/10/17 12/22/17 History warfarin [Coumadin] 6 mg PO 2XWEEK 12/22/17 12/22/17 History Home Oxygen 12/23/17 History amlodipine 5 mg PO DAILY 12/23/17 12/23/17 History Exam Vital signs: Vital Signs 12/23/17 20:37 12/23/17 20:40 12/23/17 20:55 Temperature 98.4 F Pulse Rate 104 H 116 H Respiratory Rate 18 18 Blood Pressure 162/86 H 162/86 H Pulse Oximetry 95 98 98 Intake & Output 12/23/17 12/23/17 12/24/17 06:59 18:59 06:59 Weight 90 kg Narrative: PE: GENERAL: Middle-aged white male in no acute distress. HEENT: PERRLA, EOMI. No scleral icterus or conjunctival pallor. No lid lag or facial droop. CARDIOVASCULAR: Regular rate and rhythm. No obvious murmurs to auscultation. No chest tenderness to palpation. RESPIRATORY: No obvious rhonchi or wheezing. Clear to auscultation. Breath sounds equal bilaterally. GASTROINTESTINAL: Abdomen soft, non-tender, nondistended. BS normal. MUSCULOSKELETAL: Extremities without clubbing, cyanosis, or edema. No obvious deformities. Right ankle w/ tenderness to palpation. Pulses intact. NEUROLOGICAL: Awake, alert and oriented x4. No focal neurologic deficits. Moving both upper and lower extremities spontaneously. Results - Labs CBC & Chem 7: 12/23/17 21:00 12/23/17 21:00 Labs: Short CBC 12/23/17 Range/Units 21:00 WBC 14.5 H (4.0-11.0) th/mm3 Hgb 14.9 (13.0-17.0) gm/dL Hct 43.1 (39.0-51.0) % Plt Count 179 (150-450) th/mm3 BMP 12/23/17 21:00 Sodium 136 Potassium 4.2 Chloride 103 Carbon Dioxide 24.2 BUN 7 Creatinine 1.27 Calcium 8.8 Cardiac Enzymes 12/23/17 Range/Units 21:00 Troponin I 0.04 (0.02-0.05) ng/mL - Imaging Impressions Chest X-Ray 12/23/17 20:55 CONCLUSION: Pacer leads in right atrium and right ventricle. Sternotomy with prior aortic valve replacement. No acute findings. Head CT 12/23/17 20:55 CONCLUSION: 1. No acute findings. Stable atrophy with mild ventricular enlargement compared with March 2013. . Caprini VTE Risk Assessment Caprini VTE Risk Assessment: Moderate/High Risk (score >= 2) Caprini Risk Assessment Model: Point Value = 1 Point Value = 2 Point Value = 3 Point Value = 5 Age 41-60 Minor surgery BMI > 25 kg/m2 Swollen legs Varicose veins or History of unexplained or recurrent spontaneous Oral contraceptives or hormone replacement Sepsis (< 1 month) Serious lung disease, including pneumonia (< 1 month) Abnormal pulmonary function Acute myocardial infarction Congestive heart failure (< 1 month) History of inflammatory bowel disease Medical patient at bed rest Age 61-74 Arthroscopic surgery Major open surgery (> 45 min) Laparoscopic surgery (> 45 min) Malignancy Confined to bed (> 72 hours) Immobilizing plaster cast Central venous access Age >= 75 History of VTE Family history of VTE Factor V Leiden Prothrombin [id number] Lupus anticoagulant Anticardiolipin antibodies Elevated serum homocysteine Heparin-induced thrombocytopenia Other congenital or acquired thrombophilia Stroke (< 1 month) Elective arthroplasty Hip, pelvis, or leg fracture Acute spinal cord injury (< 1 month) Prophylaxis Regimen: Total Risk Factor Score Risk Level Prophylaxis Regimen 0-1 Low Early ambulation 2 Moderate Order ONE of the following: *Sequential Compression Device (SCD) *Heparin 5000 units SQ BID 3-4 Higher Order ONE of the following medications: *Heparin 5000 units SQ TID *Enoxaparin/Lovenox 40 mg SQ daily (WT < 150 kg, CrCl > 30 mL/min) *Enoxaparin/Lovenox 30 mg SQ daily (WT < 150 kg, CrCl > 10-29 mL/min) *Enoxaparin/Lovenox 30 mg SQ BID (WT < 150 kg, CrCl > 30 mL/min) AND/OR *Sequential Compression Device (SCD) 5 or more Highest Order ONE of the following medications: *Heparin 5000 units SQ TID (Preferred with Epidurals) *Enoxaparin/Lovenox 40 mg SQ daily (WT < 150 kg, CrCl > 30 mL/min) *Enoxaparin/Lovenox 30 mg SQ daily (WT < 150 kg, CrCl > 10-29 mL/min) *Enoxaparin/Lovenox 30 mg SQ BID (WT < 150 kg, CrCl > 30 mL/min) AND *Sequential Compression Device (SCD) Assessment and Plan - Assessment (1) Syncope Code(s): R55 - Syncope and collapse Status: Acute (2) CHF (congestive heart failure) Code(s): I50.9 - Heart failure, unspecified Status: Acute (3) H/O aortic valve repair Code(s): Z98.890 - Other specified postprocedural states; Z86.79 - Personal history of other diseases of the circulatory system Status: Acute (4) Leukocytosis Code(s): D72.829 - Elevated white blood cell count, unspecified Status: Acute (5) Acute ankle pain Code(s): M25.579 - Pain in unspecified ankle and joints of unspecified foot Status: Acute - Plan A/P: 1. Syncope: acute syncopal event today, no dizziness/lightheadedness or chest pain reported prior. No seizure activity noted. CT Head w/ no acute findings, images reviewed. Initial trop negative, check serial cardiac enzymes to eval for underlying ischemia. H/o AICD w/ [employer], will ask for device to be interrogated for possible event. Follows w/ Dr. Randhawa as outpatient, last interrogation approx 3 months ago w/ no event per patient. 2. CHF: Chronic. Echo 04/11/13 w/ EF 60%, no evidence of fluid overload at this time, CXR w/ no acute findings, will check Echo to eval for systolic/ diastolic dysfunction. Monitor I/O. 3. AVR: H/o AVR on Coumadin, 3mg qd and 6mg on /, last INR check was yesterday at 2.1 per patient. Check INR, resume home Coumadin if therapeutic. 4. Leukocytosis: WBC 14, no signs of infection, likely reactive from recent syncope, will repeat labs in am. 5. Right Ankle Pain: h/o Chronic Pain, following w/ Pain Management as outpatient, recent eval at [facility] 12/23/17 for similar complaints, Ankle X-ray negative, images reviewed. Continue w/ analgesics as needed. 6. DVT Prophylaxis: On Coumadin 7. Social work for d/c planning as needed 8. Case discussed w/ ER physician at length, labs/records/imaging reviewed by me. (5) Acute ankle pain Qualifiers: Laterality: right Qualified Code(s): M25.571 - Pain in right ankle and joints of right foot
[2017-12-23 23:10] LABS: INR 3.1 Ratio; Prothrombin Time 31.5 sec (9.8-11.6)
[2017-12-23] MEDS ORDERED: oxyCODONE/Acetaminophen 10/325 Tablet PO PRN (23:13)
[2017-12-24] MEDS: Morphine Inj 4 MG/ML Vial IV.PUSH PRN ×2 (01:34→05:42)
[2017-12-24] MEDS: Morphine Sulfate 30 MG IR Tablet PO SCH ×3 (01:36→21:44)
[2017-12-24 02:25] LABS: Alkaline Phosphatase 118 U/L (45-117); Total Protein 7.5 g/dL (6.4-8.2); Troponin I 0.24 ng/mL (0.02-0.05)
[2017-12-24 02:26] LABS: Alanine Aminotransferase 52 U/L (12-78); Albumin 3.4 g/dL (3.4-5.0); Anion Gap 8 meq/L (5-15); Aspartate Aminotransferase 40 U/L (15-37); Blood Urea Nitrogen 7 mg/dL (7-18); Calcium 8.8 mg/dL (8.5-10.1); Carbon Dioxide 28.4 meq/L (21.0-32.0); Chloride 106 meq/L (98-107); Glomerular Filtration Rate 62 mL/min (>89); Glucose,Random 122 mg/dL (74-106); Sodium 142 meq/L (136-145)
[2017-12-24 07:40] LABS: Baso % (Auto) 0.2 % (0.0-2.0); Hematocrit 41.9 % (39.0-51.0); Hemoglobin 14.6 gm/dL (13.0-17.0); Lymph # (Auto) 0.9 th/mm3 (1.0-4.8); Mean Corpuscular HGB Conc 34.9 % (32.0-36.0); Mean Corpuscular Hemoglobin 36.2 pg (27.0-34.0); Mean Platelet Volume 8.4 fL (7.0-11.0); Mono # (Auto) 1.8 th/mm3 (0.0-0.9); Mono % (Auto) 14.7 % (0.0-8.0); Neut # (Auto) 9.2 th/mm3 (1.8-7.7); Neut % (Auto) 77.1 % (16.0-70.0); Platelet Count 165 th/mm3 (150-450); Red Blood Count 4.03 mil/mm3 (4.50-5.90); Red Cell Distribution Width 13.4 % (11.6-17.2); White Blood Count 11.9 th/mm3 (4.0-11.0)
[2017-12-24 07:51] LABS: INR 2.7 Ratio; Prothrombin Time 27.2 sec (9.8-11.6)
[2017-12-24] MEDS: Senna/Docusate Sodium 8.6/50 MG Tablet PO SCH ×2 (09:06→21:44)
[2017-12-24] MEDS: amLODIPine 5 MG Tablet PO SCH ×2 (09:06→21:44)
[2017-12-24] MEDS: LORazepam 1 MG Tablet PO SCH ×3 (09:06→17:27)
[2017-12-24] MEDS: Lisinopril 5 MG Tablet PO SCH (09:06)
--- NOTE | 2017-12-24 12:03 | P.PNIM ---
Subjective Interval history: Patient reports that yesterday he was bending over and suddenly lost consciousness. He states his witnessed him shaking. Device interrogation shows successful AICD fire for VT/VF. Telemetry monitoring with paced rhythm and overnight, no new arrhythmia. The patient denies any chest pain, shortness breath, palpitations. Patient complains of right ankle pain. He states he rolled his ankle about a week ago. He states he had an x-ray which did not show any fracture. He has never been diagnosed with gout, but is curious if he has that or not. Patient complains of dark urine, denies any fever or dysuria. He feels like he has been staying hydrated. Patient was on dialysis for 6 months in 2013. Physical Exam Vital signs: Vital Signs 12/23/17 20:37 12/23/17 20:40 12/23/17 20:55 Temperature 98.4 F Pulse Rate 104 H 116 H Respiratory Rate 18 18 Blood Pressure 162/86 H 162/86 H Pulse Oximetry 95 98 98 12/23/17 22:50 12/24/17 00:00 12/24/17 01:17 Temperature 98.0 F Pulse Rate 104 H 103 H Respiratory Rate 18 15 16 Blood Pressure 114/81 153/93 H Pulse Oximetry 98 99 12/24/17 03:38 12/24/17 04:00 12/24/17 07:53 Temperature 98.6 F 98.4 F Pulse Rate 96 H 106 H 95 H Respiratory Rate 16 18 Blood Pressure 156/86 H 129/86 Pulse Oximetry 97 96 Intake & Output 12/23/17 12/24/17 12/24/17 18:59 06:59 18:59 Output Total 300 / 300 Balance -300 / -300 Weight 198 lb 6.656 oz Output: Urine 300 / 300 Other: Date of Last Bowel Movement 12/22/17 Narrative: GENERAL: Well-developed well-nourished. In no acute distress. SKIN: Warm and dry. No lesions noted. HEENT: Normocephalic. Pupils equal and round. Mucous membranes pink and moist. CARDIOVASCULAR: Regular rate and rhythm. [place] valve sounds. RESPIRATORY: No accessory muscle use. Clear to auscultation. Breath sounds equal bilaterally. GASTROINTESTINAL: Abdomen soft, non-tender, nondistended. Bowel sounds x4. MUSCULOSKELETAL: Right ankle swollen, tender, warm, no wound or erythema. NEUROLOGICAL: Awake and alert. Moves upper and lower extremities spontaneously. Normal speech. PSYCHIATRIC: Appropriate mood and affect; insight and judgment normal. Results - Labs CBC & Chem 7: 12/24/17 07:07 12/24/17 01:40 Laboratory Results - last 24 hr 12/23/17 12/23/17 12/23/17 21:00 21:00 22:52 WBC 14.5 H RBC 4.17 L Hgb 14.9 Hct 43.1 MCV 103.6 H MCH 35.8 H MCHC 34.6 RDW 13.2 Plt Count 179 MPV 8.3 Neut % (Auto) Lymph % (Auto) Campbell % (Auto) Eos % (Auto) Baso % (Auto) Neut # (Auto) Lymph # (Auto) Campbell # (Auto) Eos # (Auto) Baso # (Auto) WBC Differential Differential Comment PT 31.5 H INR 3.1 Sodium 136 Potassium 4.2 Chloride 103 Carbon Dioxide 24.2 Anion Gap 9 BUN 7 Creatinine 1.27 Estimated GFR 59 L Random Glucose 141 H Calcium 8.8 Magnesium 1.8 Total Bilirubin AST ALT Alkaline Phosphatase Troponin I 0.04 Total Protein Albumin 12/24/17 12/24/17 12/24/17 01:40 07:07 07:07 WBC 11.9 H RBC 4.03 L Hgb 14.6 Hct 41.9 MCV 104.0 H MCH 36.2 H MCHC 34.9 RDW 13.4 Plt Count 165 MPV 8.4 Neut % (Auto) 77.1 H Lymph % (Auto) 8.0 L Campbell % (Auto) 14.7 H Eos % (Auto) 0.0 Baso % (Auto) 0.2 Neut # (Auto) 9.2 H Lymph # (Auto) 0.9 L Campbell # (Auto) 1.8 H Eos # (Auto) 0.0 Baso # (Auto) 0.0 WBC Differential . Differential Comment Auto diff final PT 27.2 H INR 2.7 Sodium 142 Potassium 4.0 Chloride 106 Carbon Dioxide 28.4 Anion Gap 8 BUN 7 Creatinine 1.21 Estimated GFR 62 L Random Glucose 122 H Calcium 8.8 Magnesium Total Bilirubin 1.0 AST 40 H ALT 52 Alkaline Phosphatase 118 H Troponin I 0.24 H Total Protein 7.5 Albumin 3.4 - Imaging Impressions Chest X-Ray 12/23/17 20:55 CONCLUSION: Pacer leads in right atrium and right ventricle. Sternotomy with prior aortic valve replacement. No acute findings. Head CT 12/23/17 20:55 CONCLUSION: 1. No acute findings. Stable atrophy with mild ventricular enlargement compared with March 2013. . Assessment and Plan - Plan 57-year-old male with a PMH of HTN, CHF (Echo 04/11/13 w/ EF 60%), h/o AICD ([employer]), AVR on Coumadin, COPD and Chronic Pain who was presented after syncope Syncope: Suspect due to appropriate defibrillator fire. CT Head w/ no acute findings. Defibrillator fire: Has AICD which upon interrogation showed appropriate defibrillation of VT/VF episode. Troponin increased from 0.04-0.24. Possible allergy to metoprolol. Follows w/ Dr. Randhawa as outpatient, consult cardiology. Check echocardiogram. AVR: H/o AVR on Coumadin. Continue home warfarin dose, 3mg qd and 6mg on , monitor INR. Leukocytosis: WBC 14.5->11.9. Likely reactive from defibrillator fire. Monitor for any signs or symptoms of infection. Right Ankle Pain: h/o Chronic Pain, following w/ Pain Management as outpatient , recent eval at [facility] 12/23/17 for similar complaints, Ankle X-ray with no fracture and arthritic changes. Trial of colchicine for possible gout. Continue w/ analgesics as needed. Dark urine: No urinary signs or symptoms and creatinine is stable at 1.2. Check UA. DVT Prophylaxis: On Coumadin Update 1730: Discussed with cardiology, Dr. Robles, will plan to start amiodarone and beta-storm and monitor overnight and if no further arrhythmia, discharge tomorrow. Also noted UA to have microscopic hematuria, however hemoglobin has been stable , needs outpatient urology follow-up Discharge Planning: Follow-up cardiology recommendations
--- NOTE | 2017-12-24 13:58 | ECG ---
Date Performed: 12/23/2017 Time Performed: 20:45:00 PTAGE: 57 years EKG: ELECTRONIC VENTRICULAR PACEMAKER ABNORMAL RHYTHM ECG Compared to PREVIOUS TRACING , thepatient is now paced and tachycardic DOCTOR: Piper Ceja Interpretating Date/Time 12/24/2017 13:57:46
[2017-12-24 14:00] LABS: Clarity,Urine Hazy (Clear); Color,Urine Yellow (Yellw/Straw); Glucose,Urine (UA) Negative (Negative); Specific Gravity,Urine 1.004 (1.002-1.035)
[2017-12-24 14:01] LABS: Bacteria,Urine Occasional /hpf; Bilirubin,Urine Negative (Negative); Leukocyte Esterase,Urine Trace (Negative); Mucus,Urine Few /lpf (Occasional); Nitrite,Urine Negative (Negative)
[2017-12-24] MEDS ORDERED: Montelukast 10 MG Tablet PO SCH (18:00)
--- NOTE | 2017-12-24 18:33 | MB ---
cc: Joaquín Robles MD, Nathaniel L MD DATE: 12/24/2017 REFERRING PHYSICIAN: Liborio Nagy MD REASON FOR CONSULTATION:: I was asked by Dr. Nagy to evaluate patient with syncopal episode. HISTORY OF PRESENT ILLNESS Andrew Whatley is a pleasant 57-year-old gentleman with a past medical history significant for congestive heart failure, hypertension, status post aortic valve replacement, COPD, chronic pain syndrome, status post AICD. He was admitted last night for a syncopal episode while seated. [employer] AICD interrogation shows 17 second run of ventricular tachycardia degenerating into torsades and ventricular fibrillation requiring AICD discharge. The patient does not recall having AICD discharge. He was likely already passed out before the AICD firing. He reports no recent history of chest pain with exertion or at rest suggestive of angina. Also, no congestive symptoms of orthopnea and paroxysmal nocturnal dyspnea or sustained palpitations. His main complaint this afternoon is a painful right ankle. MEDICATIONS: Acetaminophen, aluminum hydroxide, Colace, lactulose, Morphine. ALLERGIES: GEMFIBROZIL GABAPENTIN. METOPROLOL CAUSES DIZZINESS, RECURRENT SYNCOPE, NOT A TRUE ALLERGY. MEDICATIONS: Medications at home: 1. Atorvastatin. 2. Coq 10 3. Levothyroxine. 4. Lisinopril. 5. Lorazepam. 6. Singulair. 7. Morphine. 8. Multivitamin. 9. [place]-3 fatty acid. 10. Oxycodone. 11. Senna. 12. Warfarin 13. Home oxygen 14. Amlodipine. PAST MEDICAL HISTORY: As above. He has a past history of syncope, congestive heart failure attributed to valvular heart disease and diastolic dysfunction. Aortic valve replacement. PAST SURGICAL HISTORY: As above. SOCIAL HISTORY: He no longer smokes. He drinks alcohol socially. He denies history of drug abuse. FAMILY HISTORY: Not pertinent to present illness. REVIEW OF SYSTEMS: As above, 12-point review of systems reviewed and noted. No recent fevers, chills, cough and sputum production. No recent gastrointestinal, genitourinary or any neurologic symptoms. PHYSICAL EXAMINATION: VITAL SIGNS: Temperature 98.4, pulse 95, respirations 18, blood pressure 129/86, O2 sat 96%. GENERAL: He is anicteric. PERRLA. No xanthelasma. Slight JVD. NECK: No carotid bruits. LUNGS: Clear to auscultation. HEART: Regular rate and rhythm, 2/6 systolic murmur left upper sternal border. ABDOMEN: Soft and nontender. EXTREMITIES: Show no peripheral edema. A tender right ankle. LABORATORY DATA: WBC 14.5, hemoglobin is 14.9, hematocrit is 43.1, platelet count 179,000. Sodium 139, potassium 4.2, BUN 7, creatinine 1.27, troponin 0.04, 0 0.24, 0.10. INR 3.1. CARDIOLOGY STUDIES: ECG - ventricular paced rhythm. IMPRESSION: 1. Ventricular tachycardia/ventricular fibrillation. Cardiac arrest with appropriate AICD firing. 2. Status post aortic valve replacement. 3. Hypertension. 4. History of congestive heart failure. 5. Query paroxysmal atrial fibrillation, on warfarin anticoagulation 6. Chronic obstructive pulmonary disease. 7. Chronic pain syndrome. PLAN: 1. Start Carvedilol 6.25 mg b.i.d. 2. Start amiodarone 400 mg b.i.d. 3. Review echocardiogram. Thank you for allowing me to contribute to the patient's care. Please do not hesitate to contact my office with any questions. MD JOSE Gonzalez/ , 06:03 PM , 06:16 PM
[2017-12-24] MEDS: Amiodarone 200 MG Tablet PO SCH (21:44)
[2017-12-24] MEDS: Carvedilol 6.25 MG Tablet PO SCH (21:44)
--- NOTE | 2017-12-25 09:08 | P.DS ---
Date of admission: 12/23/17 22:59 Primary care physician: Lorri De Los Santos MD Brief History from admission: This is a 57-year-old male with a PMH of HTN, CHF (Echo 04/11/13 w/ EF 60%), h/ o AICD ([employer]), AVR on Coumadin, COPD and Chronic Pain who was brought to the ER after syncope. Pt reports he had a "syncope attack" earlier today, h/o similar events "after getting up too fast". Today, states he was sitting down when he had sudden syncope. Denies dizziness/lightheadedness or chest pain prior. No reported AICD shock. States he follows w/ [facility]. Randhawa in [facility], last AICD interrogation approx 3 months ago w/ no events. Last INR check was yesterday, states 2.1. Of note, pt has been in [place] ER on 12/22/17 for c/ o RUE redness, d/c'd on Clinda w/ improvement. Seen again on 12/23/17 for c/o right ankle pain, Ankle X-ray negative. Reports ongoing ankle pain despite his home pain medications. No injury/trauma. On arrival, BP 162/86, HR 104, O2 sat 95% on RA, Afebrile. WBC 14.5. Chemistry essentially unremarkable. CXR with no acute findings. CT Head negative for acute findings. DS: Medications - Discharge Medications Prescriptions: amiodarone 400 mg PO Q12HR 30 Days tab carvedilol [Coreg] 6.25 mg PO BID #60 tab DS: Summary Hospital Course: 57-year-old male with a PMH of HTN, CHF (Echo 04/11/13 w/ EF 60%), h/o AICD ([employer]), AVR on Coumadin, COPD and Chronic Pain who was presented after syncope. Syncope: Suspect due to appropriate defibrillator fire. CT Head w/ no acute findings. Defibrillator fire: Has AICD which upon interrogation showed appropriate defibrillation of VT/VF episode. Troponin increased from 0.04-0.24. Possible allergy to metoprolol. Follows tesfaye/ Dr. Randhawa as outpatient. Cardiology recommended starting patient on Carvedilol 6.25mg BID and Amiodarone 400mg Q12h. We discussed with Cardiology on 12/24/2017 and if patient exhibits no further arrhythmia, cardiology recommended discharging patient home on 2017. AVR: H/o AVR on Coumadin. Continue home warfarin dose, 3mg qd and 6mg on , monitor INR. May need to monitor closely due to Amiodarone. Leukocytosis: WBC 14.5->11.9. Likely reactive from defibrillator fire. Right Ankle Pain: h/o Chronic Pain, following w/ Pain Management as outpatient , recent eval at [facility] 12/23/17 for similar complaints, Ankle X-ray with no fracture and arthritic changes. Trial of colchicine for possible gout. Continue w/ analgesics as needed. Dark urine: No urinary signs or symptoms and creatinine is stable at 1.2. - Time Spent with Patient Total time spent providing and/or coordinating discharge services: Less than 30 minutes - Quality: VTE Deep Vein Thrombosis/Pulmonary Embolism Present on Admission: No Exam Vital signs: Vital Signs 12/24/17 12:00 12/24/17 12:18 12/24/17 16:00 Temperature 97.9 F 98.8 F Pulse Rate 105 H 109 H 62 Respiratory Rate 18 16 Blood Pressure 127/94 H 104/64 Pulse Oximetry 99 98 12/24/17 16:25 12/24/17 20:38 12/24/17 22:50 Temperature 98.4 F Pulse Rate 103 H 73 Respiratory Rate 18 18 Blood Pressure 103/68 Pulse Oximetry 96 12/24/17 23:44 12/25/17 03:47 12/25/17 07:29 Temperature 98.2 F 98.4 F 98.2 F Pulse Rate 97 H 86 80 Respiratory Rate 18 17 18 Blood Pressure 97/72 L 114/78 102/72 Pulse Oximetry 96 96 96 12/25/17 07:45 Temperature Pulse Rate 78 Respiratory Rate Blood Pressure Pulse Oximetry Intake & Output 12/24/17 12/25/17 12/25/17 18:59 06:59 18:59 Output Total 825 / 825 Balance -825 / -825 Output: Urine 825 / 825 Other: # Voids 1 Date of Last Bowel Movement 12/24/17 # Bowel Movements 1 Results Procedures completed during hospitalization: none Labs on day of discharge: Labs from last 24 hours 12/24/17 12/24/17 13:05 12:17 Troponin I 0.10 H Urine Color Yellow Urine Clarity Hazy H Urine pH 7.0 Ur Specific Elizabeth 1.004 Urine Protein 100 H Urine Glucose (UA) Negative Urine Ketones Negative Urine Occult Blood Large H Urine Nitrate Negative Urine Bilirubin Negative Urine Urobilinogen Less than 2 Ur Leukocyte Esterase Trace H Urine RBC 74 H Urine WBC 8 H Urine Bacteria Occasional H Urine Mucus Few H - Impressions ITS Impressions Chest X-Ray 12/23/17 20:55 CONCLUSION: Pacer leads in right atrium and right ventricle. Sternotomy with prior aortic valve replacement. No acute findings. Head CT 12/23/17 20:55 CONCLUSION: 1. No acute findings. Stable atrophy with mild ventricular enlargement compared with March 2013. . Discharge Plan - Discharge Disposition Patient Disposition: Discharge Home - Discharge Condition Condition: Stable - Discharge Order Discharge Orders: Discharge Order (Routine); Ordered 12/25/17 Ordered By: Liborio Nagy - Discharge Details Anticipated Discharge Date: 12/25/17 - Physicians Team Primary Care Provider: Lorri De Los Santos Attending Provider: Liborio Nagy
[2017-12-25] MEDS: Lisinopril 5 MG Tablet PO SCH (09:20)
[2017-12-25] MEDS: Amiodarone 200 MG Tablet PO SCH (09:21)
[2017-12-25] MEDS: LORazepam 1 MG Tablet PO SCH (09:22)
[2017-12-25] MEDS: amLODIPine 5 MG Tablet PO SCH (09:22)
[2017-12-25] MEDS: Morphine Sulfate 30 MG IR Tablet PO SCH (09:22)
[2017-12-25] MEDS: Senna/Docusate Sodium 8.6/50 MG Tablet PO SCH (09:23)
[2017-12-25] MEDS: Carvedilol 6.25 MG Tablet PO SCH (09:23)
--- NOTE | 2017-12-25 11:22 | ECHRPT ---
Indication: CARDIOMYOPATHY CONCLUSIONS The left ventricular systolic function is normal with an estimated ejection fraction in the range of 45% Normal left ventricular size. Wall thickness is normal. No regional wall motion abnormalities are present. A pacemaker wire is noted. The aortic prosthesis is not well visualized. The tricuspid valve is not well visualized. There is trace tricuspid valve regurgitation. The estimated pulmonary arterial pressure is 41.4 mmHg. BP: / HR: Rhythm: Sinus MEASUREMENTS (Male / Female) Normal Values Technical Quality:Very technically difficult study 2D ECHO LV Diastolic Diameter PLAX 4.9 cm 4.2 - 5.9 / 3.9 - 5.3 cm LV Systolic Diameter PLAX 3.3 cm IVS Diastolic Thickness 1.1 cm 0.6 - 1.0 / 0.6 - 0.9 cm LVPW Diastolic Thickness 1.1 cm 0.6 - 1.0 / 0.6 - 0.9 cm LV Relative Wall Thickness 0.4 LVOT Diameter 2.0 cm M-MODE Aortic Root Diameter MM 1.8 cm AV Cusp Separation MM 1.3 cm DOPPLER AV Peak Velocity 305.0 cm/s AV Peak Gradient 37.2 mmHg AV Mean Gradient 18.0 mmHg AV Velocity Time Integral 46.6 cm LVOT Peak Velocity 132.0 cm/s LVOT Peak Gradient 7.0 mmHg LVOT Velocity Time Integral 22.7 cm AV Area Cont Eq vti 1.5 cm AV Area Cont Eq pk 1.4 cm MV Area PHT 3.2 cm Mitral E Point Velocity 58.6 cm/s Mitral A Point Velocity 87.0 cm/s Mitral E to A Ratio 0.7 TR Peak Velocity 280.0 cm/s TR Peak Gradient 31.4 mmHg Right Atrial Pressure 10.0 mmHg Pulmonary Artery Systolic Pressu 41.4 mmHg Right Ventricular Systolic Press 41.4 mmHg PV Peak Velocity 223.0 cm/s PV Peak Gradient 19.9 mmHg FINDINGS LEFT VENTRICLE The left ventricular systolic function is normal with an estimated ejection fraction in the range of 60-65%. Normal left ventricular size. Wall thickness is normal. No regional wall motion abnormalities are present. RIGHT VENTRICLE A pacemaker wire is noted. AORTIC VALVE The aortic prosthesis is not well visualized. TRICUSPID VALVE The tricuspid valve is not well visualized. There is trace tricuspid valve regurgitation. The estimated pulmonary arterial pressure is 41.4 mmHg. Donell Jewell MD, FACC, [facility] [place] (Electronically Signed) Final Date:25 December 2017 11:21
[2017-12-27 18:37] VITALS: BP 102/72; PULSE 78; TEMP 98.2; O2SAT 96
== END 2017-12-25 13:17 | disposition home or self-care (01) ==
LOC: NEPC 20:25 → NEDA 20:25 → NEPGCP 20:25
PROVIDERS: ADMIT Hospitalist; ATTEND Hospitalist